=== PATIENT | female | born 1990 | race Hispanic/Latino ===

== ENCOUNTER 2018-02-19 16:32 | Inpatient (IN) | payer MEDICAID, OTHER ==
[~2018-02-19] VITALS: Ht 160 cm; Wt 74.1 kg
[2018-02-19 17:42] LABS: BASOPHILS % (AUTO) 0.4 % (0.0-5.0); EOSINOPHILS % (AUTO) 0.7 % (0.0-8.0); HEMATOCRIT 36.1 % (36-48); LYMPHOCYTES % (AUTO) 34.8 % (21.0-51.0); MEAN CORPUSCULAR HEMOGLOBIN 32.6 pg (27.0-33.0); MEAN CORPUSCULAR HGB CONC 36.2 g/dL (32.0-36.0); MONOCYTES % (AUTO) 7.5 % (3.0-13.0); NEUTROPHILS % (AUTO) 56.6 % (40.0-77.0); PLATELET COUNT (AUTO) 420 K/uL (130-400); RED BLOOD CELL COUNT(AUTO) 4.01 MIL/uL (4.00-5.50); RED CELL DISTRIBUTION WIDTH 14.9 % (11.0-15.5); WHITE BLOOD COUNT (AUTO) 7.6 K/uL (4.8-10.8)
[2018-02-19 17:43] LABS: CREATININE 0.9 mg/dL (0.5-1.5); POTASSIUM 3.9 mmol/L (3.5-5.1)
[2018-02-19 17:47] LABS: ALBUMIN 3.9 g/dL (3.5-5.0); BILIRUBIN,TOTAL 0.6 mg/dL (0.2-1.0); TOTAL PROTEIN, SERUM 7.5 g/dL (6.0-8.3)
[2018-02-19 17:55] LABS: INR 1.03 (0.85-1.15); PARTIAL THROMBOPLASTIN TIME 28.7 SEC (26.3-35.5); PROTHROMBIN TIME 10.8 SEC (9.6-11.6)
[2018-02-19] MEDS ORDERED: ACETAMINOPHEN EXTRA STRENGTH 500 MG TABLET ONE (17:55)
[2018-02-19] MEDS ORDERED: ONDANSETRON HCL MDV 20ML 2 MG/ML VIAL ONE (18:00)
[2018-02-19 18:54] LABS: AMPHET/METH SCREEN,URINE NEGATIVE (NEGATIVE); BARBITURATE SCREEN, URINE NEGATIVE (NEGATIVE); BENZODIAZEPINES SCREEN,URINE NEGATIVE (NEGATIVE); CANNABINOID SCREEN,URINE POSITIVE (NEGATIVE); COCAINE SCREEN,URINE NEGATIVE (NEGATIVE); OPIATE SCREEN,URINE NEGATIVE (NEGATIVE); PHENCYCLIDINE SCREEN,URINE NEGATIVE (NEGATIVE)
[2018-02-19] MEDS ORDERED: SODIUM CHLORIDE 0.9% 1000ML 1,000 ML IV ONE (23:39)
[2018-02-19 23:50] VITALS: BP 110/69
[2018-02-20] MEDS ORDERED: TRAMADOL HCL 50 MG TABLET ONE (01:25)
[2018-02-20] MEDS ORDERED: LORAZEPAM 2 MG/ML 1 ML VIAL IVP ONE (01:30)
[2018-02-20] MEDS ORDERED: TRAMADOL HCL 50 MG TABLET PO PRN (01:30)
[2018-02-20] MEDS ORDERED: NAPR-1023 PO (03:28)
[2018-02-20] MEDS ORDERED: TRAM50TA4 PO (03:28)
[2018-02-20 04:00] VITALS: BP 100/54
[2018-02-20] MEDS ORDERED: MORPHINE SULFATE 2 MG/ML 1ML SYG IVP PRN (06:30)
[2018-02-20 06:42] LABS: CREATININE 0.9 mg/dL (0.5-1.5); POTASSIUM 4.3 mmol/L (3.5-5.1)
[2018-02-20] MEDS ORDERED: ONDANSETRON HCL MDV 20ML 2 MG/ML VIAL IVP PRN (06:45)
[2018-02-20 08:00] VITALS: BP 96/58
[2018-02-20] MEDS: MECLIZINE HCL 25 MG TABLET PO SCH (09:24)
[2018-02-20] MEDS: FAMOTIDINE/PF 20 MG/2 ML VIAL IV SCH ×2 (09:24→20:13)
[2018-02-20 10:49] LABS: APPEARANCE,URINE SLIGHTLY CLOUDY (CLEAR); BILIRUBIN,URINE Negative (NEGATIVE); COLOR,URINE Yellow (YELLOW); GLUCOSE, URINE (UA) Negative (NEGATIVE); KETONES,URINE 15 mg/dL (NEGATIVE); LEUKOCYTE ESTERASE ,URINE Moderate (NEGATIVE); NITRATE,URINE Negative (NEGATIVE); OCCULT BLOOD,URINE Trace (NEGATIVE); PROTEIN,URINE Negative (NEGATIVE)
[2018-02-20 10:56] LABS: BACTERIA,URINE Rare /HPF (None Seen); RBC,URINE 0-1 /HPF (0-1); SQUAMOUS EPITHELIAL CELL,UR Few /HPF (0-2)
[2018-02-20] MEDS: SODIUM CHLORIDE 0.9% 1000ML 1,000 ML IV SCH ×2 (11:06→20:13)
[2018-02-20 11:21] VITALS: BP 105/64
[2018-02-20 15:57] VITALS: BP 118/55
[2018-02-20] MEDS: ACETAMINOPHEN 325 MG TAB PO PRN (18:41)
[2018-02-20 19:00] VITALS: BP 116/75
[2018-02-21] VITALS: BP 114/61
[2018-02-21] MEDS: SODIUM CHLORIDE 0.9% 1000ML 1,000 ML IV SCH ×3 (02:45→21:05)
[2018-02-21 04:00] VITALS: BP 104/61
[2018-02-21 08:00] VITALS: BP 95/58
[2018-02-21] MEDS: FAMOTIDINE/PF 20 MG/2 ML VIAL IV SCH ×2 (10:28→21:05)
[2018-02-21] MEDS: MECLIZINE HCL 25 MG TABLET PO SCH (10:28)
[2018-02-21 11:00] VITALS: BP 113/70
[2018-02-21 16:00] VITALS: BP 98/66
[2018-02-21] MEDS: ACETAMINOPHEN 325 MG TAB PO PRN (17:06)
[2018-02-21 19:59] VITALS: BP 110/70
[2018-02-21] MEDS: FOLIC ACID 1 MG TABLET PO SCH (21:05)
[2018-02-21] MEDS: LEVETIRACETAM 500 MG TABLET PO SCH (21:05)
[2018-02-22 00:06] VITALS: BP 113/65
[2018-02-22] MEDS: ACETAMINOPHEN 325 MG TAB PO PRN (04:15)
[2018-02-22 08:00] VITALS: BP 107/64
[2018-02-22] MEDS: SODIUM CHLORIDE 0.9% 1000ML 1,000 ML IV SCH (08:45)
[2018-02-22] MEDS: LEVETIRACETAM 500 MG TABLET PO SCH (10:09)
[2018-02-22] MEDS: FAMOTIDINE/PF 20 MG/2 ML VIAL IV SCH (10:09)
[2018-02-22] MEDS: MECLIZINE HCL 25 MG TABLET PO SCH (10:09)
[2018-02-22] MEDS: FOLIC ACID 1 MG TABLET PO SCH (10:09)
[2018-02-22 11:00] VITALS: BP 104/63
[2018-02-22] MEDS ORDERED: LEVE500T8 PO (12:00)
[2018-02-22] MEDS ORDERED: MECL-111 PO (12:00)
[2018-02-22] MEDS ORDERED: FOLI1TAB15 PO (12:02)
== END 2018-02-22 14:00 | disposition home or self-care (01) | DRG 101 ==
LOC: EDH 16:32 → EDHIP 16:33 → OBSVTOIN 16:33 → 3AH 23:26
PROVIDERS: ADMIT Internal Medicine Nephrology; ATTEND Internal Medicine Nephrology
DX: G40.89 Other seizures (principal); F05 Delirium due to known physiological condition; E66.9 Obesity, unspecified; F12.90 Cannabis use, unspecified, uncomplicated; F80.81 Childhood onset fluency disorder; Z68.28 Body mass index [BMI] 28.0-28.9, adult; Y92.481 Parking lot as the place of occurrence of the external cause; Z90.710 Acquired absence of both cervix and uterus
CPT/HCPCS: 36415; 70450; 70551; 80048; 80053; 80305; 81001; 82948; 85025; 85610; 85730; J3490; J7030

== ENCOUNTER 2018-03-06 09:50 | Emergency (ER) | payer OTHER ==
[~2018-03-06 09:50] MED LIST: FOLI1TAB15 PO; LEVE500T8 PO; MECL-111 PO; NAPR-1023 PO; TRAM50TA4 PO
[2018-03-06] MEDS ORDERED: DICYCLOMINE HCL 10 MG/ML 2ML AMP IM ONE (10:09)
[2018-03-06] MEDS ORDERED: SODIUM CHLORIDE 0.9% 1000ML 1,000 ML IV ONE (10:09)
[2018-03-06] MEDS ORDERED: KETOROLAC TROMETHAMINE 15MG/ML ONE (10:09)
[2018-03-06] MEDS ORDERED: ONDANSETRON ODT 4 MG TAB ONE (10:09)
[2018-03-06 10:11] LABS: BASOPHILS % (AUTO) 0.9 % (0.0-5.0); EOSINOPHILS % (AUTO) 1.4 % (0.0-8.0); HEMATOCRIT 39.2 % (36-48); LYMPHOCYTES % (AUTO) 37.9 % (21.0-51.0); MEAN CORPUSCULAR HEMOGLOBIN 30.4 pg (27.0-33.0); MEAN CORPUSCULAR HGB CONC 34.2 g/dL (32.0-36.0); MONOCYTES % (AUTO) 5.3 % (3.0-13.0); NEUTROPHILS % (AUTO) 54.5 % (40.0-77.0); PLATELET COUNT (AUTO) 403 K/uL (130-400); RED CELL DISTRIBUTION WIDTH 14.6 % (11.0-15.5); WHITE BLOOD COUNT (AUTO) 7.9 K/uL (4.8-10.8)
[2018-03-06 10:18] LABS: POTASSIUM 3.7 mmol/L (3.5-5.1)
[2018-03-06 10:23] LABS: ALBUMIN 3.8 g/dL (3.5-5.0); BILIRUBIN,TOTAL 0.1 mg/dL (0.2-1.0); TOTAL PROTEIN, SERUM 7.6 g/dL (6.0-8.3)
== END 2018-03-06 11:32 | disposition home or self-care (01) ==
LOC: EDH 09:50
DX: K80.50 Calculus of bile duct without cholangitis or cholecystitis without obstruction (principal)
CPT/HCPCS: 36415; 76705; 80053; 82150; 83690; 85025; 96361; 96372; 96374; 99285; J0500; J1885; J7030